=== PATIENT | female | born 1960 | race Caucasian/White ===

== ENCOUNTER 2017-09-23 04:01 | Day surgery (SDC) | payer OTHER ==
[~2017-09-23] VITALS: Ht 172.7 cm; Wt 85.7 kg
[~2017-09-23 04:01] MED LIST: ASPI-1471 PO; DEXL60CA6 PO; EZET10TA41 PO; IBUP800T37 PO; LACT1CAP6 PO; MAGN400T52 PO; METO-253 PO; OMEG10007 PEG; OXYC-869 PO; PRAV80TA29 PO; SUMA50TA34 PO
[2017-09-23] MEDS ORDERED: GLYCOPYRROLATE 1 MG/5 ML INJ IVP ONE (06:55)
[2017-09-23] MEDS ORDERED: LIDOCAINE MPF 1% 5 ML VIAL ONE (07:35)
[2017-09-23] MEDS ORDERED: PROPOFOL EMUL(*) 10MG/ML 20 ML 40 ML ONE (07:35)
[2017-09-23] MEDS ORDERED: LIDOCAINE/SOD BICARB 8.4% SYR ID ONE (08:00)
[2017-09-23] MEDS ORDERED: MIDAZOLAM 2 MG/2 ML VIAL IVP PRN (08:00)
[2017-09-23] MEDS ORDERED: NORMOSOL R SOLN(*) 1000 ML BAG 1,000 ML IV PRN (08:00)
[2017-09-23 08:01] VITALS: BP 144/95
[2017-09-23 09:04] VITALS: BP 100/70
--- NOTE | 2017-09-23 09:12 | Short(Outpt) Discharge Summary ---
Discharge Summary Reason for Hosp/Final Diag: (1) Epigastric abdominal pain Status: Resolved (2) GERD (gastroesophageal reflux disease) Status: Chronic Departure Discharge to: Home, Self Care Discharge Instructions Home Meds Reported Medications Ibuprofen (IBUPROFEN) 800 Mg Tablet, 1 TAB PO QHS for PAIN, TAB 09/16/17 [place]-3/Dha/Epa/Fish Oil (Fish Oil 1,000 mg Softgel) 1,000 Mg (120 Mg-180 Mg) Capsule, 1 CAP PEG QDAY 08/19/17 Ezetimibe (ZETIA) 10 Mg Tablet, 10 MG PO QDAY 07/17/15 Lactobacillus Combination No.4 (PROBIOTIC) 1 Each Capsule, 1 EACH PO QDAY, CAPSULE 07/17/15 Aspirin (ASPIR 81) 81 Mg Tablet., 81 MG PO QDAY, TAB 07/17/15 Sumatriptan Succinate (IMITREX) 50 Mg Tablet, 50 MG PO ONCE Y for MIGRAINE 07/17/15 Pravastatin Sodium (PRAVASTATIN SODIUM) 80 Mg Tablet, 80 MG PO QDAY 07/17/15 Magnesium Oxide (MAGOX 400) 400 Mg Tablet, 400 MG PO QDAY 07/17/15 Dexlansoprazole (DEXILANT) 60 Mg Cap., 60 MG PO QDAY 07/17/15 Metoprolol Tartrate (METOPROLOL TARTRATE) 50 Mg Tab, 1 TAB PO QDAY, TAB 07/17/15 Diet: Regular Activity: As Tolerated Special Instructions: Your upper endoscopy was completed without any problems. Your esophagus looks great. You have mild inflammation in your stomach but this is VERY mild and nothing to worry about and not the cause of the pain that you experienced. Continue taking dexilant as prescribed. Call my office ([phone]) if you have any continuing or worsening GI symptoms. YENNY HESS MD Sep 23, 2017 09:12
[2017-09-23 09:16] VITALS: BP 104/74
[2017-09-23 09:28] VITALS: BP 118/82
[2017-09-23 09:29] VITALS: BP 126/78
== END 2017-09-23 09:45 | disposition home or self-care (01) ==
LOC: OR 04:01
PROVIDERS: ATTEND Surgery
DX: K29.70 Gastritis, unspecified, without bleeding (principal)
CPT/HCPCS: 43235; J2001; J2704; J3490

== ENCOUNTER → 2017-10-13 | Outpatient (CLI) | payer OTHER ==
--- NOTE | 2017-10-14 12:23 | RADIOLOGY IMAGING REPORT ---
FACILITY: [facility] PATIENT NAME: CLEVE DAVENPORT : [id number] MR: [id number] V: [id number] EXAM DATE: [id number] ORDERING PHYSICIAN: YENNY LOMAX TECHNOLOGIST: Areli Smith PROCEDURE:BILATERAL DIGITAL SCREENING MAMMOGRAM WITH CAD ASSISTED INTERPRETATION AND 3D BREAST TOMOSYNTHESIS. COMPARISON:Prior mammograms dated 10/09/16, 09/26/16 and 07/26/13. INDICATIONS:SCREENING FINDINGS: A moderate amount of fibroglandular tissue is seen throughout the breasts. The parenchymal pattern has remained stable when allowing for difference in mammographic technique and patient positioning. There is no evidence of malignant appearing mass, malignant appearing calcification or other secondary sign of malignancy in either breast. DIAGNOSTIC CATEGORY 1--NEGATIVE. RECOMMENDATIONS: ROUTINE MAMMOGRAM AND CLINICAL EVALUATION. IMPRESSION: Bi-RADS 1: No significant abnormality is seen. Images were reviewed with R2CAD and 3D breast tomosynthesis. Dictated by: Caitlin Gay M.D. on 10/13/2017 at 15:57 Transcribed by: MIHAI on 10/13/2017 at 20:23 Approved by: Caitlin Gay M.D. on 10/14/2017 at 12:22 [facility]
== END ==
LOC: MAMO 01:44
PROVIDERS: ATTEND Obstetrics & Gynecology
DX: Z12.31 Encounter for screening mammogram for malignant neoplasm of breast (principal)
CPT/HCPCS: 77063; 77067

== ENCOUNTER → 2018-01-08 | Outpatient (CLI) | payer OTHER ==
--- NOTE | 2018-01-08 09:38 | EKG ---
FACILITY: [facility] [place] PATIENT NAME: CLEVE DAVENPORT : [id number] MR: [id number] V: [id number] EXAM DATE: ORDERING PHYSICIAN: YENNY CRONIN TECHNOLOGIST: ANUJ Test Reason : PREOP-SHOULDER Blood Pressure : / mmHG Vent. Rate : 060 BPM Atrial Rate : 060 BPM P-R Int : 152 ms QRS Dur : 096 ms QT Int : 452 ms P-R-T Axes : 051 -13 039 degrees QTc Int : 452 ms Normal sinus rhythm Septal infarct , age undetermined Abnormal ECG No previous ECGs available Confirmed by INDY VILLAREAL ([id number]) on 01/09/2018 6:40:31 AM Referred By: OSCAR Confirmed By:INDY VILLAREAL
== END ==
LOC: LAB 09:15
PROVIDERS: ATTEND Anesthesiology
DX: Z01.810 Encounter for preprocedural cardiovascular examination (principal); Z01.812 Encounter for preprocedural laboratory examination; R94.31 Abnormal electrocardiogram [ECG] [EKG]; M75.02 Adhesive capsulitis of left shoulder
CPT/HCPCS: 36415; 82040; 82247; 82310; 82374; 82435; 82565; 82947; 84075; 84132; 84155; 84295; 84450; 84460; 84520; 93005

== ENCOUNTER 2018-02-16 00:35 | Day surgery (SDC) | payer OTHER ==
[~2018-02-16] VITALS: Ht 172.7 cm; Wt 89.8 kg
[2018-02-16] VITALS (11 sets, daily range): BP systolic 105–128; BP diastolic 64–89
[2018-02-16] MEDS ORDERED: FAMOTIDINE 20 MG TAB PO ONE (05:45)
[2018-02-16] MEDS ORDERED: ROPIVACAINE 0.2% 20 ML VIAL ONE (06:30)
[2018-02-16] MEDS ORDERED: fentaNYL CITR 250 MCG/5 ML AMP ONE (06:33)
[2018-02-16] MEDS ORDERED: PROPOFOL EMUL(*) 10MG/ML 20 ML 20 ML ONE (06:34)
[2018-02-16] MEDS ORDERED: LIDOCAINE 2% IV 100 MG/5ML SYR ONE (06:34)
[2018-02-16] MEDS ORDERED: DEXAMETHASONE SOD 4 MG/ML VIAL ONE (06:52)
[2018-02-16] MEDS ORDERED: ONDANSETRON 4 MG/2 ML VIAL ONE (06:53)
[2018-02-16] MEDS ORDERED: KETAMINE HCL 200 MG/20 ML MDV ONE (06:54)
[2018-02-16] MEDS ORDERED: LIDOCAINE/SOD BICARB 8.4% SYR ID ONE (07:00)
[2018-02-16] MEDS ORDERED: NORMOSOL R SOLN(*) 1000 ML BAG 1,000 ML IV PRN (07:00)
[2018-02-16] MEDS ORDERED: ceFAZolin(*) 2GM/D5W 50ML 50 ML IVPB ONE (07:00)
[2018-02-16] MEDS ORDERED: CELECOXIB 200 MG CAP PO ONE (07:00)
[2018-02-16] MEDS ORDERED: MIDAZOLAM 2 MG/2 ML VIAL IVP PRN (07:00)
[2018-02-16] MEDS ORDERED: LACTATED RINGER 3000 ML BAG IR ONE (08:24)
[2018-02-16] MEDS ORDERED: fentaNYL CITR 100 MCG/2 ML AMP ONE ×2 (08:29→08:53)
[2018-02-16] MEDS ORDERED: HYDR-4309 PO (08:34)
[2018-02-16] MEDS ORDERED: APAP/HYDROCODONE 325/5 TAB ONE (09:03)
--- NOTE | 2018-02-16 09:27 | OPERATIVE REPORT 1 ---
EVENT DATE: February 16, 2018 SURGEON: Tristin Flores MD ANESTHESIOLOGIST: Lamont Luna MD ANESTHESIA: General LMA. ROUSTABOUT HEAD: PHONG Paez PREOPERATIVE DIAGNOSIS Left shoulder adhesive capsulitis, labral fraying, biceps irritation and subacromial impingement. POSTOPERATIVE DIAGNOSIS Left shoulder adhesive capsulitis, labral fraying, biceps irritation and subacromial impingement. PROCEDURE PERFORMED 1. Left shoulder arthroscopic capsular release with biceps tenotomy, chondroplasty, synovectomy and extensive debridement. 2. Labral debridement, subacromial decompression and bursectomy. 3. Manipulation. ESTIMATED BLOOD LOSS Minimal. DRAINS None. SPECIMENS None. COMPLICATIONS None. TOURNIQUET TIME Not applicable. IMPLANTS USED None. FINDINGS The patient had a tight shoulder throughout her entire shoulder. It was amenable for release and manipulation under anesthesia. After manipulation, she had significant increase in motion. INDICATIONS AND HISTORY This patient is a 57-year-old female who presented to my clinic for evaluation of left shoulder pain and irritation going on for some time. She had tried conservative management with physical therapy as well as injections and therapy. Unfortunately, she continued to have pain and problems for multiple months and so, therefore, she wanted to go ahead with the capsular release, labral debridement, probable biceps tenotomy and subacromial decompression in the near future. We also talked to her about we would perform extensive debridement throughout and also manipulation. After discussion of the risks and benefits, informed consent was obtained at the clinic visit. DESCRIPTION OF PROCEDURE The patient was brought in the operating room. She and the procedure were both verified. She was placed supine on the operating table and induced intubated by anesthesia. She was then turned to the lateral decubitus position and the left arm was prepped and draped in the usual fashion. A time-out was observed, verifying the correct patient and procedure. The standard incisions were made over the anterior and posterior aspects of the shoulder. The scope was inserted posteriorly into the intra-articular portion of the shoulder. There was noted to be some cartilage damage and a significant amount of adhesive capsulitis through this area. Therefore, I debrided the labrum and did a chondroplasty throughout the joint itself. I proceeded to use electrocautery to release the capsule right up next to the labrum through the inferior and back around to the posterior aspect, getting a complete release around this area. I also then performed biceps tenotomy using the electrocautery in order to let the labrum fall back to a normal space. I then debrided the undersurface of the rotator cuff and also any fraying or irritation around the labrum, more around the rest of the socket itself, and then performed chondroplasty on the areas that I could get to after the release. After release, there was significant increase in space available for the glenohumeral joint and for motion associated with this. I then reversed the portals and released the rest of the posterior capsule and then went up into the subacromial space. Once in the subacromial space, I was then able to perform a complete bursectomy and then extensive debridement through this area. Once I was able to get down to the rotator cuff, I then was able to move it in good directions. There were a lot of adhesions in the subacromial space I think contributing to some of this problem. I then took down the leading edge of the CA ligament and then utilizing a kimi was able to form a subacromial decompression in order to take down the acromial spur on the front part of the shoulder. I then did another diagnostic arthroscopy, making sure there were no further issues or problems associated with the shoulder. I then took the arm out of the traction and did manipulation under anesthesia. She had significant increase in motion where she could externally rotate almost to 90 degrees, forward flex to about 160-170 degrees and with abduction she had good internal and external rotation associated with this. I then was able to drain all of the fluid out of the shoulder, close the portal sites with 4-0 Monocryl and then dress with steri-strips, gauze, 4x4s after anesthetization with ropivacaine and then dressing with soft dressing and then foam tape and regular sling. She was awakened and extubated and transferred to the PACU in stable condition. ALICIA
== END 2018-02-16 09:25 | disposition home or self-care (01) ==
LOC: OR 00:35
PROVIDERS: ATTEND Orthopaedic Surgery
DX: M75.02 Adhesive capsulitis of left shoulder (principal); M25.812 Other specified joint disorders, left shoulder
CPT/HCPCS: 29822; 29825; A4565; J1100; J2001; J2405; J2704; J2795; J3010; J3490; J0690

== ENCOUNTER → 2018-12-13 | Outpatient (CLI) | payer OTHER ==
[~2018-12-13] MED LIST changes: +HYDR-653 PO
--- NOTE | 2018-12-14 14:20 | RADIOLOGY IMAGING REPORT ---
FACILITY: [facility] PATIENT NAME: CLEVE DAVENPORT : [id number] MR: [id number] V: [id number] EXAM DATE: [id number] ORDERING PHYSICIAN: CALIXTO ARGUELLES TECHNOLOGIST: Areli Smith PROCEDURE:BILATERAL DIGITAL SCREENING MAMMOGRAM WITH CAD ASSISTED INTERPRETATION & 3D TOMOSYNTHESIS COMPARISON:Prior Mammograms 10/13/17, 10/09/16, 09/26/16, 07/26/13. INDICATIONS:screening FINDINGS: There are scattered areas of fibroglandular density throughout the breasts. There is a biopsy clip in the upper outer quadrant of the Left breast middle /. The parenchymal pattern throughout the breasts has remained stable allowing for difference in mammographic technique & patient positioning. DIAGNOSTIC CATEGORY 1--NEGATIVE. RECOMMENDATIONS: ROUTINE MAMMOGRAM AND CLINICAL EVALUATION. IMPRESSION: BIRADS 1: Negative. No significant abnormality is seen. Dictated by: Caitlin Gay M.D. on 12/13/2018 at 14:44 Transcribed by: TREE on 12/13/2018 at 14:58 Approved by: Caitlin Gay M.D. on 12/14/2018 at 14:18 [facility]
== END ==
LOC: MAMO 00:56
PROVIDERS: ATTEND Family Medicine
DX: Z12.31 Encounter for screening mammogram for malignant neoplasm of breast (principal); Z80.3 Family history of malignant neoplasm of breast
CPT/HCPCS: 77063; 77067